=== PATIENT | female | born 1990 | race Caucasian/White ===

== ENCOUNTER 2020-10-01 18:52 | Emergency (ER) | payer OTHER ==
[2020-10-01 21:07] LABS: HEMOGLOBIN 12.8 gm/dl (12.3-15.3); RED BLOOD COUNT 4.13 M/UL (4.00-5.10); WHITE BLOOD COUNT 7.7 K/UL (4.5-11.0)
[2020-10-01 21:28] LABS: BUN/CREATININE RATIO 16 (0-10)
== END 2020-10-01 22:23 | disposition home or self-care (01) ==
LOC: ER1 18:52
PROVIDERS: Family Medicine
DX: R10.13 Epigastric pain (principal); R10.11 Right upper quadrant pain; Z87.19 Personal history of other diseases of the digestive system; Z98.890 Other specified postprocedural states
CPT/HCPCS: 80053; 83690; 85025; 99284

== ENCOUNTER 2021-07-15 10:30 | Outpatient (CLI) | payer OTHER | END 2021-07-15 16:59 | disposition home or self-care (01) | LOC: GENOP 10:30 | DX: O36.8130 Decreased fetal movements, third trimester, not applicable or unspecified (principal); O46.93 Antepartum hemorrhage, unspecified, third trimester; O99.283 Endocrine, nutritional and metabolic diseases complicating pregnancy, third trimester; E03.9 Hypothyroidism, unspecified; E28.2 Polycystic ovarian syndrome; Z98.84 Bariatric surgery status; Z3A.35 35 weeks gestation of pregnancy; O99.891 Other specified diseases and conditions complicating pregnancy; N89.8 Other specified noninflammatory disorders of vagina; R10.9 Unspecified abdominal pain | CPT/HCPCS: 76815; 81001; 83518; 96360; 96361; 96372; J0702; J3105; J7120 ==

== ENCOUNTER 2021-08-08 16:45 | Inpatient (IN) | payer OTHER ==
[2021-08-08 17:24] LABS: HEMOGLOBIN 12.7 gm/dl (12.3-15.3); RED BLOOD COUNT 3.84 M/UL (4.00-5.10)
[2021-08-09] MEDS ORDERED: SYNTHROID25 MCG PO (07:03)
[2021-08-09] MEDS ORDERED: IBUPROFEN600 MG PO (18:15)
[2021-08-09] MEDS ORDERED: DOCUSATE SODIU250 MG PO (18:15)
[2021-08-09] MEDS ORDERED: FEROSUL325 MG PO (18:15)
== END 2021-08-11 16:24 | disposition home or self-care (01) | DRG 807 ==
LOC: GENOP 16:45 → OB 17:10
PROVIDERS: Obstetrics & Gynecology; ADMIT Obstetrics & Gynecology
PROC: 10E0XZZ Delivery of Products of Conception, External Approach (ICD-10-PCS; principal; 2021-08-09)
PROC: 10907ZC Drainage of Amniotic Fluid, Therapeutic from Products of Conception, Via Natural or Artificial Opening (ICD-10-PCS; 2021-08-09)
PROC: 3E033VJ Introduction of Other Hormone into Peripheral Vein, Percutaneous Approach (ICD-10-PCS; 2021-08-09)
DX: O99.214 Obesity complicating childbirth (principal); Z37.0 Single live birth; O99.284 Endocrine, nutritional and metabolic diseases complicating childbirth; E03.9 Hypothyroidism, unspecified; E66.9 Obesity, unspecified; Z3A.39 39 weeks gestation of pregnancy; Z98.84 Bariatric surgery status
CPT/HCPCS: 51702; 82800; 85014; 85018; 85025; 90471; 90715; J2590